=== PATIENT | female | born 1960 | race African-American/Black ===

== ENCOUNTER 2020-03-31 18:38 | Inpatient (IN) | payer OTHER ==
[2020-03-31 20:53] LABS: BASO % 0.8 % (0-2.0); EOS % 1.7 % (0-4.5); HEMATOCRIT 20.5 % (32.4-45.2); LYMPH % 25.4 % (8-40); MCH 23.8 pg (25.7-33.7); MCHC 32.4 g/dl (32.0-36.0); MEAN CELL VOLUME 73.5 fl (80-96); MEAN PLT VOLUME 7.7 fl (7.5-11.1); NEUT % 62.1 % (42.8-82.8); PLATELET COUNT 237 K/MM3 (134-434); RBC 2.79 M/mm3 (3.60-5.2); RDW 20.2 % (11.6-15.6); WHITE BLOOD COUNT 6.2 K/mm3 (4.0-10.0)
[2020-03-31 21:00] LABS: INR 1.24 (0.83-1.09); PROTHROMBIN TIME (PATIENT) 14.9 SEC (9.7-13.0)
[2020-03-31 21:02] LABS: ACTIVATED PTT 30.1 SECONDS (25.2-36.5)
[2020-03-31 21:03] LABS: HEMOGLOBIN 6.6 GM/dL (10.7-15.3)
[2020-03-31 21:18] LABS: POTASSIUM 4.6 mmol/L (3.5-5.1)
[2020-03-31 21:20] LABS: CALCIUM 9.3 mg/dL (8.5-10.1)
[2020-03-31 21:21] LABS: BLOOD UREA NITROGEN 25.1 mg/dL (7-18)
[2020-03-31 21:24] LABS: CREATININE 1.5 mg/dL (0.55-1.3)
[2020-03-31 21:25] LABS: BILIRUBIN,TOTAL 0.4 mg/dL (0.2-1); TOT PROT 7.6 g/dl (6.4-8.2)
[2020-04-01] MEDS ORDERED: PANTOPRAZOLE 20 MG TABLET PO SCH (07:00)
[2020-04-01] MEDS: INSULIN SLIDING SCALE (NOVOLOG) 1 VIAL SQ SCH ×3 (07:23→17:21)
[2020-04-01 08:07] VITALS: BMI 44.0
[2020-04-01] MEDS: LOSARTAN POTASSIUM 50 MG TABLET PO SCH (09:32)
[2020-04-01] MEDS: DULoxetine HCL 30 MG CAPSULE.DR PO SCH (09:33)
[2020-04-01] MEDS: LABETALOL HCL 200 MG TABLET (FP) PO SCH ×2 (09:33→21:45)
[2020-04-01] MEDS: BISACODYL 5 MG TABLET.DR (FP) PO SCH (09:33)
[2020-04-01] MEDS: NIFEdipine E.R 60 MG TABLET PO SCH (09:33)
[2020-04-01] MEDS ORDERED: PATIENT'S OWN MEDICATION (NON-FORMULARY) (Metformin Hcl [Glucophage] 1,000 MG Tablet) PO SCH (10:00)
[2020-04-01] MEDS ORDERED: PATIENT'S OWN MEDICATION (NON-FORMULARY) (Omeprazole 20 MG Capsule.Dr) PO SCH (10:00)
[2020-04-01] MEDS ORDERED: CLOPIDOGREL BISULFATE 75 MG TABLET (FP) PO SCH (10:00)
[2020-04-01] MEDS: PANTOPRAZOLE SODIUM 40 MG VIAL IVPUSH SCH ×2 (12:08→21:45)
[2020-04-01 12:56] LABS: BASO % 0.7 % (0-2.0); EOS % 1.6 % (0-4.5); HEMATOCRIT 24.7 % (32.4-45.2); HEMOGLOBIN 8.2 GM/dL (10.7-15.3); LYMPH % 20.2 % (8-40); MCHC 33.1 g/dl (32.0-36.0); MEAN CELL VOLUME 75.7 fl (80-96); MEAN PLT VOLUME 7.2 fl (7.5-11.1); MONO % 12.7 % (3.8-10.2); NEUT % 64.8 % (42.8-82.8); PLATELET COUNT 158 K/MM3 (134-434); RBC 3.27 M/mm3 (3.60-5.2); RDW 20.5 % (11.6-15.6); WHITE BLOOD COUNT 6.2 K/mm3 (4.0-10.0)
[2020-04-01 13:55] LABS: POTASSIUM 4.2 mmol/L (3.5-5.1)
[2020-04-01 13:59] LABS: ANISOCYTOSIS 2+; MACROCYTOSIS 0; PLATELET ESTIMATE DECREASED; TARGET CELLS 1+
[2020-04-01 14:02] LABS: ALBUMIN 3.8 g/dl (3.4-5.0); BLOOD UREA NITROGEN 22.8 mg/dL (7-18); CALCIUM 9.4 mg/dL (8.5-10.1)
[2020-04-01 14:06] LABS: MAGNESIUM 1.8 mg/dL (1.8-2.4)
[2020-04-01 14:07] LABS: BILIRUBIN,TOTAL 0.7 mg/dL (0.2-1); CREATININE 1.2 mg/dL (0.55-1.3)
[2020-04-01 14:09] LABS: TOT PROT 7.2 g/dl (6.4-8.2)
[2020-04-02] MEDS: INSULIN SLIDING SCALE (NOVOLOG) 1 VIAL SQ SCH ×3 (07:23→16:50)
[2020-04-02] MEDS: BISACODYL 5 MG TABLET.DR (FP) PO SCH (09:52)
[2020-04-02] MEDS: LABETALOL HCL 200 MG TABLET (FP) PO SCH ×2 (09:53→21:34)
[2020-04-02] MEDS: DULoxetine HCL 30 MG CAPSULE.DR PO SCH (09:53)
[2020-04-02] MEDS: LOSARTAN POTASSIUM 50 MG TABLET PO SCH (09:53)
[2020-04-02] MEDS: NIFEdipine E.R 60 MG TABLET PO SCH (09:53)
[2020-04-02] MEDS ORDERED: CLOPIDOGREL BISULFATE 75 MG TABLET (FP) PO SCH (10:00)
[2020-04-02] MEDS ORDERED: ASPIRIN 81 MG CHEWABLE TABLETS PO SCH (10:00)
[2020-04-02] MEDS ORDERED: PANTOPRAZOLE 40 MG TABLET PO SCH (10:00)
[2020-04-02 12:52] LABS: EPI CELLS 15 /uL (0-25.1); HYALINE CASTS 0 /uL (0-3.1); URINE APPEARANCE CLEAR; URINE BACTERIA 307 /uL (0-1359); URINE BILIRUBIN NEGATIVE (NEGATIVE); URINE COLOR YELLOW; URINE GLUCOSE (UA) NEGATIVE (NEGATIVE); URINE KETONE NEGATIVE (NEGATIVE); URINE LEUK ESTERASE NEGATIVE (NEGATIVE); URINE NITRITE NEGATIVE (NEGATIVE); URINE PROTEIN NEGATIVE (NEGATIVE); URINE RBC 4 /uL (0-23.9); URINE UROBILINOGEN 0.2 mg/dL (0.2-1.0); URINE WBC 4 /uL (0-25.8)
[2020-04-02 16:16] LABS: BASO % 0.4 % (0-2.0); EOS % 2.3 % (0-4.5); HEMATOCRIT 24.2 % (32.4-45.2); HEMOGLOBIN 7.9 GM/dL (10.7-15.3); LYMPH % 23.3 % (8-40); MCHC 32.8 g/dl (32.0-36.0); MEAN CELL VOLUME 76.3 fl (80-96); MEAN PLT VOLUME 7.8 fl (7.5-11.1); MONO % 12.7 % (3.8-10.2); NEUT % 61.3 % (42.8-82.8); PLATELET COUNT 152 K/MM3 (134-434); RBC 3.17 M/mm3 (3.60-5.2); WHITE BLOOD COUNT 5.6 K/mm3 (4.0-10.0)
[2020-04-02] MEDS: PATIENT'S OWN MEDICATION (NON-FORMULARY) (Ipratropium/Albuterol Sulfate 1 PUFF Inhaler) IH SCH (18:43)
[2020-04-02 20:32] LABS: POTASSIUM 3.9 mmol/L (3.5-5.1)
[2020-04-02 20:35] LABS: ALBUMIN 3.7 g/dl (3.4-5.0); BLOOD UREA NITROGEN 19.2 mg/dL (7-18)
[2020-04-02 20:38] LABS: CREATININE 1.3 mg/dL (0.55-1.3)
[2020-04-02 20:40] LABS: BILIRUBIN,TOTAL 0.4 mg/dL (0.2-1); TOT PROT 6.9 g/dl (6.4-8.2)
[2020-04-02] MEDS ORDERED: PATIENT'S OWN MEDICATION (NON-FORMULARY) (Ipratropium/Albuterol Sulfate 4 GM) IH SCH (22:00)
[2020-04-02] MEDS ORDERED: ATORVASTATIN CA 10 MG TABLET (FP) PO SCH ×2 (22:00)
[2020-04-03] MEDS: INSULIN SLIDING SCALE (NOVOLOG) 1 VIAL SQ SCH ×3 (07:08→18:03)
[2020-04-03] MEDS ORDERED: PANTOPRAZOLE 40 MG TABLET PO SCH (10:00)
[2020-04-03] MEDS ORDERED: LOSARTAN POTASSIUM 50 MG TABLET PO SCH (10:00)
[2020-04-03] MEDS ORDERED: DULoxetine HCL 30 MG CAPSULE.DR PO SCH (10:00)
[2020-04-03] MEDS ORDERED: NIFEdipine E.R 60 MG TABLET PO SCH (10:00)
[2020-04-03] MEDS ORDERED: BISACODYL 5 MG TABLET.DR (FP) PO SCH (10:00)
[2020-04-03] MEDS ORDERED: CLOPIDOGREL BISULFATE 75 MG TABLET (FP) PO SCH (10:00)
[2020-04-03] MEDS ORDERED: ASPIRIN 81 MG CHEWABLE TABLETS PO SCH (10:00)
[2020-04-03] MEDS: LABETALOL HCL 200 MG TABLET (FP) PO SCH (11:48)
[2020-04-03 17:08] LABS: GLIADIN ANTIBODY IGA 3 units (0-19); GLIADIN ANTIBODY IGG 2 units (0-19); TRANSGLUTAMINASE IGG < 2 U/mL (0-5)
[2020-04-03 20:52] VITALS: BP 124/62; PULSE 102; TEMP 98
== END 2020-04-03 20:52 | DRG 812 ==
LOC: JER 18:38 → JERBED 22:27 → J4W 04-01 02:55 → J5WEST-2 04-02 18:35
PROVIDERS: ADMIT Internal Medicine; ATTEND Family Medicine
PROC: 30233N1 Transfusion of Nonautologous Red Blood Cells into Peripheral Vein, Percutaneous Approach (ICD-10-PCS; principal; 2020-03-31)
DX: D64.9 Anemia, unspecified (principal); I69.354 Hemiplegia and hemiparesis following cerebral infarction affecting left non-dominant side; Z68.41 Body mass index [BMI] 40.0-44.9, adult; R07.89 Other chest pain; D63.8 Anemia in other chronic diseases classified elsewhere; E11.9 Type 2 diabetes mellitus without complications; E78.5 Hyperlipidemia, unspecified; I10 Essential (primary) hypertension; E66.01 Morbid (severe) obesity due to excess calories; Z86.16 Personal history of COVID-19
CPT/HCPCS: 36415; 36430; 36511; 71045-TC-FY; 80053; 80061; 81003; 82272; 82550; 82565; 82607; 82728; 82746; 82784; 82962; 83010; 83036; 83516; 83540; 83550; 83615; 83721; 83735; 84155; 84156; 84165; 84300; 84443; 84484; 85025; 85045; 85610; 85730; 86850; 86880; 86900; 86901; 86922; 93005; 93010; 99285-25; C9803; P9038; P9058; U0003

== ENCOUNTER 2022-03-27 17:10 | Inpatient (IN) | payer OTHER ==
[2022-03-27] MEDS ORDERED: ONDANSETRON 4 MG/2 ML VIAL IVPUSH ONE (20:02)
[2022-03-27] MEDS ORDERED: ONDANSETRON 4 MG/2 ML VIAL ONE (20:31)
[2022-03-27 20:40] LABS: BASO % 0.5 % (0-2.0); EOS % 0.9 % (0-4.5); HEMATOCRIT 29.9 % (32.4-45.2); HEMOGLOBIN 9.7 GM/dL (10.7-15.3); LYMPH % 29.9 % (8-40); MCHC 32.3 g/dl (32.0-36.0); MEAN PLT VOLUME 7.4 fl (7.5-11.1); MONO % 9.3 % (3.8-10.2); NEUT % 59.4 % (42.8-82.8); PLATELET COUNT 291 10^3/uL (134-434); RBC 4.21 M/mm3 (3.60-5.2); RDW 17.6 % (11.6-15.6)
[2022-03-27 20:45] LABS: INR 1.45 (0.83-1.09); PROTHROMBIN TIME (PATIENT) 16.8 SEC (9.7-13.0)
[2022-03-27 20:48] LABS: ACTIVATED PTT 65.3 SECONDS (25.2-36.5)
[2022-03-27 21:03] LABS: CHLORIDE 102 mmol/L (98-107); SODIUM 135 mmol/L (136-145)
[2022-03-27 21:04] LABS: CALCIUM 9.6 mg/dL (8.5-10.1)
[2022-03-27 21:05] LABS: ALBUMIN 4.2 g/dl (3.4-5.0); ANION GAP 6 MMOL/L (8-16); CO2 27 mmol/L (21-32); GLUCOSE,RANDOM 92 mg/dL (74-106); LIPASE 154 U/L (73-393)
[2022-03-27 21:08] LABS: CREATININE 1.3 mg/dL (0.55-1.3); SGOT/AST 13 U/L (15-37); SGPT/ALT 24 U/L (13-61)
[2022-03-27 21:09] LABS: TOT PROT 7.4 g/dl (6.4-8.2)
[2022-03-27 21:10] LABS: BILIRUBIN,TOTAL 0.2 mg/dL (0.2-1)
[2022-03-27 21:11] LABS: ALK PHOS 76 U/L (45-117)
[2022-03-27] MEDS ORDERED: ASPIRIN 81 MG CHEWABLE TABLETS PO ONE ×2 (21:19)
[2022-03-27] MEDS ORDERED: ASPIRIN 81 MG CHEWABLE TABLETS ONE (21:34)
[2022-03-27 21:37] LABS: EPI CELLS >36 /uL (0-25.1); HYALINE CASTS 1 /uL (0-3.1); PH,URINE 5.5 (5.0-8.0); URINE APPEARANCE CLEAR; URINE BACTERIA >9,000 /uL (0-1359); URINE BILIRUBIN NEGATIVE (NEGATIVE); URINE COLOR YELLOW; URINE GLUCOSE (UA) NEGATIVE (NEGATIVE); URINE KETONE NEGATIVE (NEGATIVE); URINE LEUK ESTERASE 1+ (NEGATIVE); URINE NITRITE NEGATIVE (NEGATIVE); URINE PROTEIN NEGATIVE (NEGATIVE); URINE RBC 13 /uL (0-23.9); URINE UROBILINOGEN 0.2 mg/dL (0.2-1.0); URINE WBC 90 /uL (0-25.8)
[2022-03-27] MEDS ORDERED: CEFTRIAXONE 1,000 MG in DEXTROSE 5%-WATER - 50 ML IVPB ONE (22:25)
[2022-03-27] MEDS ORDERED: CEFTRIAXONE 1 GM/50 ML BAG ONE (22:51)
[2022-03-28] MEDS ORDERED: ATORVASTATIN CA 80 MG TABLET (FP) PO ONE (03:04)
[2022-03-28] MEDS ORDERED: ATORVASTATIN CA 80 MG TABLET (FP) ONE (03:25)
[2022-03-28 07:15] LABS: BASO % 0.3 % (0-2.0); EOS % 0.9 % (0-4.5); HEMATOCRIT 30.3 % (32.4-45.2); HEMOGLOBIN 9.6 GM/dL (10.7-15.3); MCH 22.5 pg (25.7-33.7); MCHC 31.8 g/dl (32.0-36.0); MEAN CELL VOLUME 70.7 fl (80-96); MEAN PLT VOLUME 7.6 fl (7.5-11.1); MONO % 9.1 % (3.8-10.2); NEUT % 52.7 % (42.8-82.8); PLATELET COUNT 327 10^3/uL (134-434); RBC 4.29 M/mm3 (3.60-5.2); RDW 17.7 % (11.6-15.6); WHITE BLOOD COUNT 8.2 K/mm3 (4.0-10.0)
[2022-03-28 07:19] LABS: CALCIUM 9.6 mg/dL (8.5-10.1)
[2022-03-28 07:20] LABS: ALBUMIN 4.3 g/dl (3.4-5.0); BLOOD UREA NITROGEN 36.6 mg/dL (7-18); MAGNESIUM 2.2 mg/dL (1.8-2.4)
[2022-03-28 07:22] LABS: CREATININE 1.4 mg/dL (0.55-1.3)
[2022-03-28 07:23] LABS: PHOSPHOROUS 4.5 mg/dL (2.5-4.9)
[2022-03-28 07:24] LABS: BILIRUBIN,TOTAL 0.3 mg/dL (0.2-1); TOT PROT 7.8 g/dl (6.4-8.2)
[2022-03-28] MEDS: INSULIN SLIDING SCALE (NOVOLOG) 1 VIAL SQ SCH ×4 (07:52→22:09)
[2022-03-28] MEDS ORDERED: CEFTRIAXONE 1 GM in DEXTROSE 5%-WATER - 50 ML IVPB SCH (10:00)
[2022-03-28] MEDS ORDERED: SPIRONOLACTONE 25 MG TABLET PO SCH (10:00)
[2022-03-28] MEDS ORDERED: NIFEdipine E.R 60 MG TABLET PO SCH (10:00)
[2022-03-28] MEDS ORDERED: LOSARTAN POTASSIUM 50 MG TABLET PO SCH (10:00)
[2022-03-28] MEDS ORDERED: HYDROCHLOROTHIAZIDE 25 MG TABLET (FP) PO SCH (10:00)
[2022-03-28] MEDS ORDERED: DABIGATRAN ETEXILATE MESYLATE 150 MG CAPSULE PO SCH (10:00)
[2022-03-28] MEDS ORDERED: HYDROCHLOROTHIAZIDE 25 MG TABLET (FP) ONE (11:49)
[2022-03-28] MEDS ORDERED: SPIRONOLACTONE 25 MG TABLET ONE (11:49)
[2022-03-28] MEDS ORDERED: levETIRAcetam 500 MG TABLET (FP) PO ONE (11:49)
[2022-03-28] MEDS ORDERED: POLYETHYLENE GLYCOL (HEALTHYLAX) 3350 17 GM PACKET ONE (11:49)
[2022-03-28] MEDS ORDERED: LOSARTAN POTASSIUM 50 MG TABLET ONE (11:49)
[2022-03-28] MEDS ORDERED: NIFEdipine E.R 60 MG TABLET PO ONE (11:50)
[2022-03-28] MEDS: POLYETHYLENE GLYCOL (HEALTHYLAX) 3350 17 GM PACKET PO SCH ×3 (11:50→22:08)
[2022-03-28] MEDS ORDERED: CEFTRIAXONE 1 GM/50 ML BAG ONE (11:50)
[2022-03-28] MEDS: levETIRAcetam 500 MG TABLET (FP) PO SCH ×2 (11:51→22:09)
[2022-03-28] MEDS ORDERED: LABETALOL HCL 100 MG TABLET (FP) ONE (11:52)
[2022-03-28] MEDS: LABETALOL HCL 200 MG TABLET (FP) PO SCH ×2 (11:53→22:09)
[2022-03-28] MEDS ORDERED: ACETAMINOPHEN 1000 MG/100 ML BAG IVPB PRN (14:07)
[2022-03-28] MEDS ORDERED: ACETAMINOPHEN INJECTION 100 ML IVPB ONE (14:57)
[2022-03-28 16:54] VITALS: BMI 45.9
[2022-03-28 23:25] VITALS: BP 124/72; PULSE 110; RESP 19; TEMP 98.3
== END 2022-03-29 01:15 | disposition short-term general hospital (02) | DRG 311 ==
LOC: JER 17:10 → JERBED 03-28 00:54 → OBSVTOIN 03-28 02:54 → J4W 03-28 16:15
PROVIDERS: ADMIT Internal Medicine
DX: I24.9 Acute ischemic heart disease, unspecified (principal); I69.354 Hemiplegia and hemiparesis following cerebral infarction affecting left non-dominant side; N39.0 Urinary tract infection, site not specified; Z68.42 Body mass index [BMI] 45.0-49.9, adult; I10 Essential (primary) hypertension; E78.5 Hyperlipidemia, unspecified; E11.9 Type 2 diabetes mellitus without complications; D50.9 Iron deficiency anemia, unspecified; E66.01 Morbid (severe) obesity due to excess calories; B96.1 Klebsiella pneumoniae [K. pneumoniae] as the cause of diseases classified elsewhere
CPT/HCPCS: 36415; 70450-TC; 71046-TC-FY; 74177-TC; 80053; 80061; 81003; 82728; 82962; 83036; 83540; 83550; 83615; 83690; 83735; 83880; 84100; 84443; 84484; 85025; 85045; 85379; 85610; 85730; 86850; 86900; 86901; 87086; 87186; 93005; 93010; 93306-TC; 93880-TC; 99285-25; C9803-CS; G0378; Q9967; U0003; U0005